=== PATIENT | female | born 1970 | race African-American/Black ===

== ENCOUNTER 2018-12-09 14:37 | Emergency (ER) | payer SELFPAY ==
[2018-12-09 15:19] LABS: #Basophils 0.1 thou/uL (0.0-0.2); #Eosinphils 0.1 thou/uL (0.0-0.7); #Lymphocytes 3.3 thou/uL (1.20-3.40); #Monocytes 0.6 thou/uL (0.11-0.59); #Neutrophils 2.7 thou/uL (1.40-6.50); %Basophils 1.5 % (0.0-1.0); %Lymphocytes 48.9 % (21.0-51.0); %Monocytes 9.2 % (0.0-10.0); %Neutrophils 39.4 % (42.0-75.0); Hemoglobin 12.6 g/dL (12.0-16.0); Mean Corpuscular Hemoglobin 23.3 pg (27.0-31.0); Mean Corpuscular Volume 75.2 fL (78.0-98.0); Mean Platelet Volume 11.7 fL (7.4-10.4); Platelet Count 223 thou/uL (130-400); Red Blood Cell (RBC) Count 5.38 mill/uL (4.20-5.40); White Blood Cell (WBC) Count 6.8 thou/uL (4.8-10.8)
--- NOTE | 2018-12-09 15:21 | RAD ---
XR Chest 1 View Portable HISTORY: Hypertension. COMPARISON: 06/12/2010 study. FINDINGS: Heart size within normal limits for portable technique. Aorta is mildly tortuous. The lungs are clear of infiltrates. IMPRESSION: No active intrathoracic disease.
[2018-12-09 15:41] LABS: ALT (SGPT) 15 U/L (8-55); AST (SGOT) 15 U/L (5-34); Albumin 4.3 g/dL (3.5-5.0); Alkaline Phosphatase 104 U/L (40-150); Anion Gap 11 mmol/L (10-20); BUN (Urea Nitrogen) 9 mg/dL (7.0-18.7); Bilirubin, Total 0.4 mg/dL (0.2-1.2); Calc. Creatinine Clearance 0 mL/min (70-130); Calcium 9.6 mg/dL (7.8-10.44); Carbon Dioxide 24 mmol/L (22-29); Chloride 105 mmol/L (98-107); Estimated GFR-MDRD 78; Globulin 3.3 g/dL (2.4-3.5); Glucose 104 mg/dL (70-105); Potassium 3.8 mmol/L (3.5-5.1); Protein, Total 7.6 g/dL (6.0-8.3); Sodium 136 mmol/L (136-145)
[2018-12-09] MEDS ORDERED: Acetaminophen 500 MG TAB ONE (16:53)
--- NOTE | 2018-12-13 16:48 | EKG ---
Test Reason : FLUTTERY FEELING Blood Pressure : / mmHG Vent. Rate : 073 BPM Atrial Rate : 073 BPM P-R Int : 210 ms QRS Dur : 084 ms QT Int : 400 ms P-R-T Axes : 052 000 018 degrees QTc Int : 440 ms Sinus rhythm with 1st degree A-V block Possible Left atrial enlargement Left ventricular hypertrophy Abnormal ECG Confirmed by AISHWARYA PRIETO ([id number]), acquisition editor NASIM OCHOA ([id number]) on 12/13/2018 4:47:03 PM Referred By: Confirmed By:AISHWARYA PRIETO
== END 2018-12-09 16:56 | disposition home or self-care (01) ==
LOC: ERS 14:37
DX: I10 Essential (primary) hypertension (principal); Z79.899 Other long term (current) drug therapy
CPT/HCPCS: 36415; 71045; 80053; 84484; 85025; 93005